=== PATIENT | male | born 1955 | race African-American/Black ===

== ENCOUNTER 2017-07-16 17:35 | Emergency (ER) | payer OTHER ==
[~2017-07-16] VITALS: Ht 190.5 cm; Wt 107.5 kg
[~2017-07-16 17:35] MED LIST: ALBU8.5H3 INH; AMLO-15 PO; CEPH-443 PO; CLOT10TR6 MM; FLUT9.9S NS; HYD25 PO; HYDR-3498 PO; HYDR-762 PO; NAPR-260 PO; SIMV5TAB50 PO
[2017-07-16 17:38] VITALS: Ht 190.5 cm; Wt 107.5 kg
[2017-07-16] MEDS ORDERED: ALBUTEROL 0.083% (NEB) 2.5 MG/3 ML AMP HHN STA (17:53)
[2017-07-16] MEDS ORDERED: IPRATROPIUM (NEB) 0.5 MG/2.5 ML AMP HHN ONE (18:00)
[2017-07-16] MEDS ORDERED: DEXAMETHASONE 10 MG/ML 1 ML INJ PO ONE (18:00)
[2017-07-16] MEDS ORDERED: LEVO750T25 PO (19:02)
[2017-07-16] MEDS ORDERED: ALBU8.5H3 INH (19:03)
[2017-07-16] MEDS ORDERED: D-ME473S2 PO (19:04)
--- NOTE | 2017-07-16 19:08 | ERD ---
ER Documentation Chief Complaint Date/Time DATE: 07/16/17 TIME: 19:05 Chief Complaint Complains of a fever and chest congestion HPI This is a 61 y/o female that presents to the ER for a cough since . Patient states that cough is dry and constant. Cough is getting significantly worse. He denies any fever/chills. Patient does admit to some wheezing. His was sick with similar symptoms earlier in the week. He denies any chest pain or shortness of breath. Patient denies any recent travel. He denies any leg pain redness or swelling. She does admit to some sore throat, he denies ear pain. He denies headaches. ROS 12 point review of systems was done, all negative except per HPI. Medications Home Meds Active Scripts Dextromethorphan Hb-Promethazine Hcl* (Promethazine DM* Syrup) 473 Ml Syrup, 10 ML PO Q6 Y for COUGH for 5 Days, #120 ML Prov:AP GALEANA 07/16/17 Albuterol Sulfate* (Proair HFA*) 8.5 Gm Hfa.aer.ad, 2 PUFF INH Q4, #1 INHALER Prov:AP GALEANA 07/16/17 Levofloxacin* (Levaquin*) 750 Mg Tablet, 750 MG PO DAILY for 5 Days, TAB Prov:AP GALEANA 07/16/17 Naproxen* (Naprosyn*) 500 Mg Tablet, 500 MG PO BID Y for PAIN AND/OR INFLAMMATION, #30 TAB Prov:NORTH GAONAC 02/27/16 Clotrimazole* (Clotrimazole*) 10 Mg Radha, 10 MG MM 5 TIMES DAILY for 10 Days, TAB Prov:NORTH GAONA-C 02/27/16 Hydrocodone Bit-Acetaminophen* ([place]*) 10-325 Mg Tablet, 1 TAB PO Q6 Y for PAIN , #7 TAB Prov:FABI OCAMPO MD 12/25/15 Cephalexin* (Keflex*) 500 Mg Capsule, 500 MG PO QID for 7 Days, CAP Prov:FABI OCAMPO MD 12/25/15 Reported Medications Fluticasone Propionate (Flonase Allergy Relief) 9.9 Ml [place].susp, 9.9 ML NS 09/15/15 Albuterol Sulfate* (Proair HFA*) 8.5 Gm Hfa.aer.ad, 2 PUFF INH Q4H Y for WHEEZING AND SOB, INH 09/15/15 Hydrochlorothiazide* (Hydrochlorothiazide*) 25 Mg Tab, 25 MG PO DAILY, TAB 09/15/15 Simvastatin* (Simvastatin*) 5 Mg Tablet, 5 MG PO HS, TAB 09/15/15 Hydrocodone Bit-Acetaminophen (Hydrocodone Bit-APAP) 5-325MG Tablet, 1 TAB PO Q6H Y for PAIN, TAB 09/15/15 Amlodipine-Benazepril (Amlodipine-Benazepril) 10-20 Mg Capsule, 1 CAP PO DAILY, CAP 09/15/15 Allergies Allergies: Coded Allergies: Sulfa (Sulfonamide Antibiotics) (Unverified Allergy, Severe, rash, 02/27/16) rash PMhx/Soc History of Surgery: Yes (gall bladder, hernia repair, pilondial cyst ) Anesthesia Reaction: No Hx Neurological Disorder: No Hx Respiratory Disorders: No Hx Cardiac Disorders: Yes (htn) Hx Psychiatric Problems: No Hx Miscellaneous Medical Probl: Yes (HTN, dyslipidemia) Hx Alcohol Use: No Hx Substance Use: No Hx Tobacco Use: Yes Smoking Status: Current every day smoker Physical Exam Vitals Physical Exam GENERAL: The patient is well-developed, well-nourished, in no acute distress. NECK: Cervical spine is non tender with no step off. Supple, no nuchal rigidity HEENT: Atraumatic. Pupils equal, round and reactive to light. Extraocular muscles are grossly intact. Conjunctivae pink, no discharge. Bilateral tympanic membranes are clear with no evidence of erythema, effusion or dulling of the light reflex. Tonsilar erythema with no exudates or uvular deviation. Clear rhinorrhea. RESPIRATORY: Expiratory wheezes in all lung gu[place]. No rales rhonchi or crackles. HEART: Regular rate and rhythm. No murmurs, clicks, rubs or gallops. EXTREMITIES: No clubbing or cyanosis. Full range of motion. Grossly neurovascularly intact. NEUROLOGIC: Alert and oriented. Cranial nerves II through XII are intact. SKIN: There is no rash. The skin is warm and dry. Results 24 hrs Current Medications Medications (Trade) Dose Ordered Sig/[place] Route PRN Reason Start Time Stop Time Status Last Admin Dose Admin Albuterol (Proventil 0.083% (Neb)) 10 mg ONCE STAT HHN 07/16/17 17:53 07/16/17 17:54 DC 07/16/17 18:18 Ipratropium [place] (Atrovent 0.02% (Neb)) 0.5 mg ONCE ONCE HHN 07/16/17 18:00 07/16/17 18:01 DC 07/16/17 18:18 Dexamethasone (Decadron) 10 mg ONCE ONCE PO 07/16/17 18:00 07/16/17 18:01 DC 07/16/17 17:59 [place] [id number] Rad[address] Main Line: [phone] DIAGNOSTIC IMAGING REPORT Patient: YANIRA RICHARDS : 1955 Age: 61 Sex: M MR #: [id number] DOS: 07/16/17 0000 Ordering MD: AP GALEANA-Louann Location: [facility] Room/Bed: PROCEDURE: Portable chest x-ray. CLINICAL INDICATION: 61 years of age, male. Cough . TECHNIQUE: Portable AP view of the chest. COMPARISON: None available. FINDINGS: Cardiomediastinal contours are normal. Lungs are clear. Negative for pleural effusion or pneumothorax.. No acute bony abnormality. IMPRESSION: Negative for evidence of acute chest process. Negative for an infiltrate. RPTAT: HCTS Physician Camilla Date Time Electronically viewed and signed by Physician Camilla on 07/16/2017 20: 11 CS/ CC: AP GALEANA Procedures/MDM Differential diagnosis includes but is not limited to; Viral URI, allergic rhinitis, bronchitis, pertussis,pneumonia. She will be treated for possible bacterial bronchitis with Levaquin. He also be sent home with an albuterol inhaler and cough medicine. Patient was given a nebulizing treatment in the ER , his wheezing was significantly improved, he felt significantly better. Clinical suspicion for pneumonia is low as patient appears well, is not hypoxic or in any respiratory distress. Additionally, patients physical examination is benign. Plan was discussed with patient they understand and agree. Patient needs to follow up with PCP in 1-2 days or return to ER sooner if symptoms worsen. Departure Diagnosis: Primary Impression: Bronchitis Condition: Stable Patient Instructions: Bronchitis With Wheezing (Adult) Additional Instructions: Call your primary care doctor TOMORROW for an appointment during the next 1-2 days.See the doctor sooner or return here if your condition worsens before your appointment time. AP GALEANA Jul 16, 2017 19:07
--- NOTE | 2017-07-16 20:11 | RADRPT ---
PROCEDURE: Portable chest x-ray. CLINICAL INDICATION: 61 years of age, male. Cough . TECHNIQUE: Portable AP view of the chest. COMPARISON: None available. FINDINGS: Cardiomediastinal contours are normal. Lungs are clear. Negative for pleural effusion or pneumothorax.. No acute bony abnormality. IMPRESSION: Negative for evidence of acute chest process. Negative for an infiltrate. RPTAT: HCTS Physician Camilla Date Time Electronically viewed and signed by Gopal Redmond Physician on 07/16/2017 20:11 CS/
[2017-07-16 20:31] VITALS: BP 137/81; PULSE 78; RESP 20
== END 2017-07-16 20:32 | disposition home or self-care (01) ==
LOC: FTE 17:35
DX: J20.9 Acute bronchitis, unspecified (principal); I10 Essential (primary) hypertension; F17.210 Nicotine dependence, cigarettes, uncomplicated; R05 Cough
CPT/HCPCS: 71010; 94664; 99284; J1100